=== PATIENT | female | born 1945 | race American Indian/Alaskan Native ===

== ENCOUNTER 2016-06-29 21:28 | Emergency (ER) | payer SELFPAY ==
[2016-06-29 22:45] VITALS: BP 147/94
== END 2016-06-30 03:52 | disposition left against medical advice (07) ==
LOC: ED 21:28
DX: R05 Cough (principal); I10 Essential (primary) hypertension; Z53.21 Procedure and treatment not carried out due to patient leaving prior to being seen by health care provider
CPT/HCPCS: 93005; 93010

== ENCOUNTER 2016-07-26 18:05 | Emergency (ER) | payer MEDICARE ==
--- NOTE | 2016-07-26 19:29 | Emergency Department Report ---
Stated Complaint: BUMP ON LEG/VEIN Time Seen by Provider: 07/26/16 19:25 - HPI History of Present Illness: Patient here reports that she has a lump to her right inner thigh that she noticed today. She denies any trauma to side. Complaining of skin rash to upper extremity and thinks it's from her Zithromax. Denies any respiratory symptoms. - ROS Review of Systems: All systems are negative unless stated in HPI above. - Exam Physical Exam: General: Well-nourished well-developed female in no acute distress. Skin: Noted course size mobile nodule to right inner distal thigh area. Nontender to palpate without any erythema, or fluctuance. Maculopapular rash to bilateral upper extremity. Sand paperlike feeling. MSE screening note: Focused history and physical exam performed. Due to findings the following was ordered: ED Medical Decision Making - Medical Decision Making MDM: Patient seen by provider in triage area. She has been examined and appropriate to fast-track area. ED Disposition for MSE Condition: Stable
--- NOTE | 2016-07-26 21:21 | Emergency Department Report ---
HPI - General Chief Complaint: Skin/Abscess/Foreign Body Time Seen by Provider: 07/26/16 19:25 - HPI HPI: 71 year old female presents today complaining of a lump to her right inner thigh that she noticed today. She denies injury or trauma. Denies history of similar symptoms. Denies any pain or pruritus at the site. Patient also complaining of skin rash to both upper extremities x5 days. She thinks it may be associated with azithromycin since she had taken that for 5 days starting July 09. Denies fever, chills, nausea, vomiting, chest pain, shortness of breath, abdominal pain. Denies difficulty in breathing or swallowing. ED Past Medical Hx - Past Medical History Previous Medical History?: Yes Hx Hypertension: Yes Additional medical history: a fib - Surgical History Additional Surgical History: R knee - Social History Smoking Status: Unknown if ever smoked - Medications Home Medications: Home Medications Medication Instructions Recorded Confirmed Last Taken Type Azithromycin [Zithromax Z-XIANG] 250 mg PO DAILY 07/26/16 07/26/16 Unknown History Lisinopril [Zestril TAB] 40 mg PO QDAY 07/26/16 07/26/16 Unknown History Metoprolol Succinate 25 mg PO DAILY 07/26/16 07/26/16 Unknown History Warfarin [Coumadin] 5 mg PO QDAY 07/26/16 07/26/16 Unknown History amLODIPine [Norvasc] 5 mg PO DAILY 07/26/16 07/26/16 Unknown History predniSONE [Deltasone] 20 mg PO QDAY 07/26/16 07/26/16 Unknown History ED Review of Systems ROS: Stated complaint: BUMP ON LEG/VEIN Other details as noted in HPI Constitutional: denies: chills, fever, malaise Eyes: denies: eye pain ENT: denies: ear pain, throat pain, congestion Respiratory: denies: cough, shortness of breath, wheezing Cardiovascular: denies: chest pain, palpitations Endocrine: no symptoms reported Gastrointestinal: denies: abdominal pain, nausea, vomiting Skin: rash. denies: pruritus Neurological: denies: headache, weakness, numbness, paresthesias Physical Exam - Physical Exam Vital Signs: Vital Signs 07/26/16 19:29 Temperature 98.0 F Pulse Rate 83 Respiratory 18 Rate Blood Pressure 138/82 O2 Sat by Pulse 96 Oximetry Physical Exam: GENERAL: The patient is well-developed and well-nourished. Patient is in NAD. SKIN: 1 cm in diameter mobile nodule to right inner distal thigh area. Nontender to palpation without any erythema or fluctuance. Maculopapular rash noted to bilateral upper extremity. Sand paperlike feeling. HEAD: Normocephalic. Atraumatic. CHEST/LUNGS: Clear to auscultation throughout. HEART/CARDIOVASCULAR: Regular rate and rhythm. No murmurs, rubs or gallops. ABDOMEN: Abdomen is soft, nontender. Bowel sounds normoactive. No guarding or rebound tenderness. EXTREMITIES: Peripheral pulses intact. Capillary refill less than 2 seconds. NEURO: Alert and oriented x 3. Normal gait. ED Course Vital Signs 07/26/16 19:29 Temperature 98.0 F Pulse Rate 83 Respiratory 18 Rate Blood Pressure 138/82 O2 Sat by Pulse 96 Oximetry ED Medical Decision Making - Lab Data Vital Signs 07/26/16 19:29 Temperature 98.0 F Pulse Rate 83 Respiratory 18 Rate Blood Pressure 138/82 O2 Sat by Pulse 96 Oximetry - Medical Decision Making 71-year-old female presents today with a a lump of her right thigh and eczema like rash to both upper extremities. Patient is recommended to use FOR or Cetaphil to both upper extremities. Patient is in no acute distress at this time. She will be discharged home and is encouraged to follow up with a primary care provider. She is encouraged to return to the emergency room for any worsening symptoms. Critical care attestation.: If time is entered above; I have spent that time in minutes in the direct care of this critically ill patient, excluding procedure time. ED Disposition Clinical Impression: Rash Lump of thigh Qualifiers: Laterality: right Qualified Code(s): R22.41 - Localized swelling, mass and lump , right lower limb Disposition: DISCHARGED TO HOME OR SELFCARE Is pt being admited?: No Does the pt Need Aspirin: No Condition: Stable Instructions: Eczema (ED), Lymphadenopathy (ED) Additional Instructions: Follow-up with primary care provider. Return to the emergency department if symptoms worsen. Referrals: SAPNA MATIAS MD [Primary Care Provider] - 3-5 Days AUTUMN QUISPE MD [Staff Physician] - 3-5 Days Forms: Work/School Release Form(ED), Accompanied Note Time of Disposition: 21:23
[2016-07-26 21:58] VITALS: BP 157/92
== END 2016-07-26 22:10 | disposition home or self-care (01) ==
LOC: ED 18:05
DX: R22.41 Localized swelling, mass and lump, right lower limb (principal); R21 Rash and other nonspecific skin eruption; I10 Essential (primary) hypertension
CPT/HCPCS: 99281

== ENCOUNTER 2016-11-22 11:36 | Emergency (ER) | payer MEDICARE ==
--- NOTE | 2016-11-22 13:07 | Emergency Department Report ---
ED General Adult HPI - General Chief complaint: Skin Rash Stated complaint: BILAT LEG RED SPOTS/TAKES BLOOD THINNERS Time Seen by Provider: 11/22/16 12:46 Source: patient Mode of arrival: Ambulatory Limitations: No Limitations - History of Present Illness Initial comments: 71F PMH Afib, Dmt2, HLD p/w c/o several days of red rash to b/l lower extremities. Pt is AAOx3, NAD, no fevers or chills no abdominal pain no dysuria no hematuria denies any rectal bleeding. Patient accompanied by her . States she notices rash a few days ago dark red spots on her legs. Patient denies any pain associated with rash Onset/Timin -: days(s) Location: lower extremity (petechial reddish rash bilateral anterior benitez regions pretibial regions) Radiation: extremity - Related Data Home Medications Medication Instructions Recorded Confirmed Last Taken Azithromycin [Zithromax Z-XIANG] 250 mg PO DAILY 07/26/16 07/26/16 Unknown Lisinopril [Zestril TAB] 40 mg PO QDAY 07/26/16 07/26/16 Unknown Metoprolol Succinate 25 mg PO DAILY 07/26/16 07/26/16 Unknown Warfarin [Coumadin] 5 mg PO QDAY 07/26/16 07/26/16 Unknown amLODIPine [Norvasc] 5 mg PO DAILY 07/26/16 07/26/16 Unknown predniSONE [Deltasone] 20 mg PO QDAY 07/26/16 07/26/16 Unknown Allergies Allergy/AdvReac Type Severity Reaction Status Date / Time No Known Allergies Allergy Unverified 06/29/16 22:43 ED Review of Systems ROS: Stated complaint: BILAT LEG RED SPOTS/TAKES BLOOD THINNERS Other details as noted in HPI Constitutional: denies: chills, fever Eyes: denies: eye pain, eye discharge, vision change ENT: denies: ear pain, throat pain Respiratory: denies: cough, shortness of breath, wheezing Cardiovascular: denies: chest pain, palpitations Endocrine: no symptoms reported Gastrointestinal: denies: abdominal pain, nausea, diarrhea Genitourinary: denies: urgency, dysuria, discharge Musculoskeletal: denies: back pain, joint swelling, arthralgia Skin: as per HPI, rash (small red petechial lesions on both legs from the knee down). denies: lesions Neurological: denies: headache, weakness, paresthesias Psychiatric: denies: anxiety, depression Hematological/Lymphatic: denies: easy bleeding, easy bruising ED Past Medical Hx - Past Medical History Previous Medical History?: Yes Hx Hypertension: Yes Additional medical history: a fib - Surgical History Past Surgical History?: Yes Additional Surgical History: R knee - Social History Smoking Status: Never Smoker Substance Use Type: None - Medications Home Medications: Home Medications Medication Instructions Recorded Confirmed Last Taken Type Azithromycin [Zithromax Z-XIANG] 250 mg PO DAILY 07/26/16 07/26/16 Unknown History Lisinopril [Zestril TAB] 40 mg PO QDAY 07/26/16 07/26/16 Unknown History Metoprolol Succinate 25 mg PO DAILY 07/26/16 07/26/16 Unknown History Warfarin [Coumadin] 5 mg PO QDAY 07/26/16 07/26/16 Unknown History amLODIPine [Norvasc] 5 mg PO DAILY 07/26/16 07/26/16 Unknown History predniSONE [Deltasone] 20 mg PO QDAY 07/26/16 07/26/16 Unknown History ED Physical Exam - General Limitations: No Limitations General appearance: alert, in no apparent distress - Head Head exam: Present: atraumatic, normocephalic - Eye Eye exam: Present: normal appearance, PERRL, EOMI - ENT ENT exam: Present: normal exam, normal orophraynx (no petechial lesions inside of the oral cavity vehicle mucosa on the tongue or underneath the tongue), mucous membranes moist - Neck Neck exam: Present: normal inspection, full ROM - Respiratory Respiratory exam: Present: normal lung sounds bilaterally. Absent: respiratory distress - Cardiovascular Cardiovascular Exam: Present: regular rate, normal rhythm. Absent: systolic murmur, diastolic murmur, rubs, gallop - GI/Abdominal GI/Abdominal exam: Present: soft, normal bowel sounds - Extremities Exam Extremities exam: Present: normal inspection - Back Exam Back exam: Present: normal inspection - Neurological Exam Neurological exam: Present: alert, oriented X3, CN II-XII intact, normal gait - Psychiatric Psychiatric exam: Present: normal affect, normal mood - Skin Skin exam: Present: warm, dry, intact, normal color, petechiae (petechia bilateral lower extremity). Absent: rash ED Course Vital Signs 11/22/16 11:43 Temperature 98.5 F Pulse Rate 112 H Respiratory 16 Rate Blood Pressure 134/79 O2 Sat by Pulse 99 Oximetry ED Medical Decision Making - Lab Data Result diagrams: 11/22/16 13:12 11/22/16 13:12 - Medical Decision Making A/P: Lower extremity petechia, possible vasculitis 1-labs within normal limits, platelets within normal limits, INR 2.96, hepatic panel normal, no electrolyte abnormalities, no lower extremity DVT 2-case discussed with Dr. Joshi who also examined the patient 3-I provided patient with her test results and advised her to follow up with her primary care doctor and to seek out a rheumatology consultation or referral to her primary care doctor. Patient stated she understood my instructions 4- I advised patient to return to the ED for any fevers chills cough hemoptysis or hematuria or rectal bleeding. Patient stated she understood my instructions. Patient was accompanied by who also heard this conversation. Critical care attestation.: If time is entered above; I have spent that time in minutes in the direct care of this critically ill patient, excluding procedure time. ED Disposition Clinical Impression: Petechial rash Disposition: DC-01 TO HOME OR SELFCARE Is pt being admited?: No Does the pt Need Aspirin: No Condition: Stable Instructions: Acute Rash (ED) Additional Instructions: [email or web address]=search_result&search=vasculitis%20adult&selectedTitle=1~150#[email or web address] Referrals: VONNIE LEDESMA MD [Staff Physician] - 3-5 Days ENRICO AVILA MD [Staff Physician] - 3-5 Days Forms: Accompanied Note Time of Disposition: 15:33
[2016-11-22 13:33] LABS: Basophils % (Auto) 0.2 % (0.0-1.8); Eosinophils % (Auto) 0.3 % (0.0-4.3); Hematocrit 39.6 % (30.3-42.9); Hemoglobin 13.3 gm/dl (10.1-14.3); Mean Corpuscular HGB Conc 34 % (30-34); Mean Corpuscular Hemoglobin 31 pg (28-32); Mean Corpuscular Volume 92 fl (79-97); Platelet Count 231 K/mm3 (140-440); Red Blood Count 4.31 M/mm3 (3.65-5.03); Red Cell Distribution Width 13.7 % (13.2-15.2); White Blood Count 5.9 K/mm3 (4.5-11.0)
[2016-11-22 13:43] LABS: Bilirubin,Urine NEG (Negative); Blood,Urine SM (Negative); Ketones,Urine NEG (Negative); Leukocyte Esterase,Urine NEG (Negative); Nitrite,Urine NEG (Negative); Protein,Urine <15 mg/dL mg/dL (Negative); Urobilinogen,Urine < 2.0 mg/dL (<2.0); WBC,Urine < 1.0 /HPF (0.0-6.0)
[2016-11-22 13:45] LABS: INR 2.96 (0.87-1.13); Partial Thromboplastin Time 41.7 Sec. (24.2-36.6)
[2016-11-22 13:59] LABS: Alanine Aminotransferase 11 units/L (7-56); Albumin 4.7 g/dL (3.9-5); Albumin/Globulin Ratio 1.5 %; Alkaline Phosphatase 80 units/L (35-129); Anion Gap 20 mmol/L; BUN/Creatinine Ratio 21.66; Blood Urea Nitrogen 13 mg/dL (7-17); Calcium 9.6 mg/dL (8.4-10.2); Carbon Dioxide 26 mmol/L (22-30); Chloride 96.3 mmol/L (98-107); Glucose 88 mg/dL (65-100); Potassium 5.1 mmol/L (3.6-5.0); Sodium 137 mmol/L (137-145); Total Protein 7.9 g/dL (6.3-8.2)
[2016-11-22 14:08] LABS: Bilirubin,Direct < 0.2 mg/dL (0-0.2)
[2016-11-22 16:59] VITALS: BP 129/83
== END 2016-11-22 15:35 | disposition home or self-care (01) ==
LOC: ED 11:36
DX: R23.3 Spontaneous ecchymoses (principal); I10 Essential (primary) hypertension; I48.91 Unspecified atrial fibrillation; Z79.01 Long term (current) use of anticoagulants
CPT/HCPCS: 36415; 80048; 80074; 81001; 85025; 85610; 85730; 93970

== ENCOUNTER 2017-11-11 02:45 | Emergency (ER) | payer MEDICARE ==
[2017-11-11] MEDS ORDERED: ASPIRIN PO ONE (03:02)
[2017-11-11 03:34] LABS: Basophils % (Auto) 0.5 % (0.0-1.8); Eosinophils % (Auto) 0.7 % (0.0-4.3); Hematocrit 38.7 % (30.3-42.9); Hemoglobin 13.1 gm/dl (10.1-14.3); Lymphocytes # (Auto) 1.1 K/mm3 (1.2-5.4); Lymphocytes % (Auto) 25.6 % (13.4-35.0); Mean Corpuscular HGB Conc 34 % (30-34); Mean Corpuscular Hemoglobin 32 pg (28-32); Mean Corpuscular Volume 94 fl (79-97); Monocytes # (Auto) 0.3 K/mm3 (0.0-0.8); Monocytes % (Auto) 6.3 % (0.0-7.3); Platelet Count 233 K/mm3 (140-440); Red Blood Count 4.13 M/mm3 (3.65-5.03); Red Cell Distribution Width 13.8 % (13.2-15.2)
[2017-11-11 03:58] LABS: BUN/Creatinine Ratio 16; Blood Urea Nitrogen 11 mg/dL (7-17); Calcium 9.8 mg/dL (8.4-10.2); Hemolysis Index 0
[2017-11-11 05:16] VITALS: BP 131/77
--- NOTE | 2017-11-11 05:26 | Emergency Department Report ---
ED Chest Pain HPI - General Chief Complaint: Chest Pain Stated Complaint: CHEST PAIN Time Seen by Provider: 11/11/17 04:23 Source: patient Mode of arrival: Ambulatory Limitations: No Limitations - History of Present Illness Initial Comments: Yesterday afternoon, pt was under a lot of stress. She started having palpitations. It made her concerned that she was back in a.fib. So, she came to the ER for evaluation. Currently on eliquis/metoprolol. No CP/SOB. At time of presentation to the ER, the patient feels much improved. Pt normally takes her metoprolol Er at 5 am daily. - Related Data Home Medications Medication Instructions Recorded Confirmed Last Taken Lisinopril [Zestril TAB] 40 mg PO QDAY 07/26/16 11/11/17 Unknown Metoprolol Succinate 25 mg PO DAILY 07/26/16 11/11/17 Unknown amLODIPine [Norvasc] 5 mg PO DAILY 07/26/16 11/11/17 Unknown Apixaban [Eliquis] 2.5 mg PO BID 11/11/17 11/11/17 Unknown Allergies Allergy/AdvReac Type Severity Reaction Status Date / Time No Known Allergies Allergy Unverified 06/29/16 22:43 Heart Score - HEART Score History: Slightly suspicious EKG: Normal Age: > 65 Risk factors: 1-2 risk factors Troponin: < normal limit HEART Score: 3 ED Review of Systems ROS: Stated complaint: CHEST PAIN Other details as noted in HPI Comment: All other systems reviewed and negative Cardiovascular: palpitations Psychiatric: anxiety ED Past Medical Hx - Past Medical History Previous Medical History?: Yes Hx Hypertension: Yes Additional medical history: a fib - Surgical History Past Surgical History?: Yes Additional Surgical History: R knee - Social History Smoking Status: Former Smoker Substance Use Type: None - Medications Home Medications: Home Medications Medication Instructions Recorded Confirmed Last Taken Type Lisinopril [Zestril TAB] 40 mg PO QDAY 07/26/16 11/11/17 Unknown History Metoprolol Succinate 25 mg PO DAILY 07/26/16 11/11/17 Unknown History amLODIPine [Norvasc] 5 mg PO DAILY 07/26/16 11/11/17 Unknown History Apixaban [Eliquis] 2.5 mg PO BID 11/11/17 11/11/17 Unknown History ED Physical Exam - General Limitations: No Limitations General appearance: alert, in no apparent distress - Head Head exam: Present: atraumatic, normocephalic - Eye Eye exam: Present: normal appearance - ENT ENT exam: Present: mucous membranes moist - Neck Neck exam: Present: normal inspection - Respiratory Respiratory exam: Present: normal lung sounds bilaterally. Absent: respiratory distress - Cardiovascular Cardiovascular Exam: Present: regular rate, normal rhythm, tachycardia, normal heart sounds. Absent: systolic murmur, diastolic murmur, rubs, gallop - GI/Abdominal GI/Abdominal exam: Present: soft, normal bowel sounds. Absent: distended, tenderness, guarding, rebound - Extremities Exam Extremities exam: Present: normal inspection - Back Exam Back exam: Present: normal inspection - Neurological Exam Neurological exam: Present: alert, oriented X3 - Psychiatric Psychiatric exam: Present: normal affect, normal mood - Skin Skin exam: Present: warm, dry, intact, normal color. Absent: rash ED Course Vital Signs 11/11/17 11/11/17 11/11/17 02:55 03:54 04:00 Temperature 98.1 F 98.2 F Pulse Rate 114 H 91 H 93 H Respiratory 16 21 13 Rate Blood Pressure 161/90 139/82 Blood Pressure 140/79 [Left] O2 Sat by Pulse 97 97 98 Oximetry 11/11/17 05:01 Temperature Pulse Rate 81 Respiratory 12 Rate Blood Pressure 131/77 Blood Pressure [Left] O2 Sat by Pulse 96 Oximetry ED Medical Decision Making - Lab Data Result diagrams: 11/11/17 03:06 11/11/17 03:06 - EKG Data -: EKG Interpreted by Me EKG shows normal: sinus rhythm, axis, intervals, QRS complexes, ST-T waves Rate: tachycardia - EKG Data Interpretation: no acute changes, other (occcasional PVCs) - Medical Decision Making 72 yo female with pmhx a.fib, htn that p/w palpitations. VS significant for heart rate of 114. This improved without intervention. EKG shows sinus tach with occasional PVCs. Labs are unremarkable. I believe patient's tachycardia to be related to her not having her metoprolol at this time. She normally takes it at 0500 and she arrived to the ER at 0300 with intermittent tachycardia. Low suspicion for ACS, PE given no CP/SOB. Pt feels reassured that she isn't in a. fib. She will follow up with her pcp for further evaluation/management of her palpitations. - Differential Diagnosis acs, pe, arrhythmia, electrolyte abnormality, anxiety Critical care attestation.: If time is entered above; I have spent that time in minutes in the direct care of this critically ill patient, excluding procedure time. ED Disposition Clinical Impression: Heart palpitations Disposition: DC-01 TO HOME OR SELFCARE Is pt being admited?: No Does the pt Need Aspirin: No Condition: Stable Instructions: Palpitations (ED) Additional Instructions: Please follow up with your primary care physician about further evaluation/ management of your palpitations if these episodes continue. Referrals: PRIMARY CARE, [Primary Care Provider] - 3-5 Days
== END 2017-11-11 05:46 | disposition home or self-care (01) ==
LOC: ED 02:45
DX: R00.2 Palpitations (principal); I10 Essential (primary) hypertension; I48.91 Unspecified atrial fibrillation; Z87.891 Personal history of nicotine dependence
CPT/HCPCS: 36415; 80048; 83735; 84484; 85025; 93005; 93010; 99284

== ENCOUNTER 2018-08-30 15:06 | Emergency (ER) | payer MEDICARE ==
--- NOTE | 2018-08-30 15:27 | Emergency Department Report ---
Blank Doc - Documentation Documentation: 73 y o female presents to Ed stating not feeling well Hx of Atrial fib with meds denies chest pain states not feeling good at all labs ordered main side eval
--- NOTE | 2018-08-30 16:31 | Emergency Department Report ---
ED General Adult HPI - General Chief complaint: Weakness Stated complaint: AFIB Time Seen by Provider: 08/30/18 15:22 Source: patient, RN notes reviewed, old records reviewed Mode of arrival: Ambulatory Limitations: No Limitations - History of Present Illness Initial comments: Primary care Dr.: Dr. Harris Cardiology: Dr. Caldwell Past medical history: Atrial fibrillation, presumed per minute, on systemic anticoagulation, eliquis, hypertension This is a pleasant 73-year-old female. The patient presents to the emergency room with a complaint of feeling weak, nervous and shaky. She is not having pain. Her symptoms began this morning. They were constant. They did not radiate anywhere. He did not have exacerbating or relieving factors. They're now resolved. The patient does not have headache, neck pain, chest pain, abdominal pain, shortness of breath, fever, sore throat, urinary symptoms, she endorses compliance with her medications, indicates no recent medication changes, and indicates no caffeine consumption for at least 24 hours. -: Gradual Severity scale (0 -10): 0 Consistency: now resolved Improves with: none Worsens with: none Associated Symptoms: denies other symptoms - Related Data Home Medications Medication Instructions Recorded Confirmed Last Taken Lisinopril [Zestril TAB] 40 mg PO QDAY 07/26/16 11/11/17 Unknown Metoprolol Succinate 25 mg PO DAILY 07/26/16 11/11/17 Unknown amLODIPine [Norvasc] 5 mg PO DAILY 07/26/16 11/11/17 Unknown Apixaban [Eliquis] 2.5 mg PO BID 11/11/17 11/11/17 Unknown Allergies Allergy/AdvReac Type Severity Reaction Status Date / Time No Known Allergies Allergy Verified 08/30/18 15:07 ED Review of Systems ROS: Stated complaint: AFIB Other details as noted in HPI Comment: All other systems reviewed and negative Constitutional: malaise ED Past Medical Hx - Past Medical History Hx Hypertension: Yes Additional medical history: a fib - Surgical History Additional Surgical History: R knee - Social History Smoking Status: Never Smoker Substance Use Type: None - Medications Home Medications: Home Medications Medication Instructions Recorded Confirmed Last Taken Type Lisinopril [Zestril TAB] 40 mg PO QDAY 07/26/16 11/11/17 Unknown History Metoprolol Succinate 25 mg PO DAILY 07/26/16 11/11/17 Unknown History amLODIPine [Norvasc] 5 mg PO DAILY 07/26/16 11/11/17 Unknown History Apixaban [Eliquis] 2.5 mg PO BID 11/11/17 11/11/17 Unknown History ED Physical Exam - General Limitations: No Limitations General appearance: alert, in no apparent distress - Head Head exam: Present: atraumatic, normocephalic - Eye Eye exam: Present: normal appearance, EOMI. Absent: nystagmus - ENT ENT exam: Present: normal exam, normal orophraynx, mucous membranes moist, normal external ear exam - Neck Neck exam: Present: normal inspection, full ROM. Absent: tenderness, meningismu s - Respiratory Respiratory exam: Present: normal lung sounds bilaterally. Absent: respiratory distress - Cardiovascular Cardiovascular Exam: Present: tachycardia, irregular rhythm, normal heart sounds, other (resting heart rate anywhere from mid 80s to 104 bpm). Absent: systolic murmur, diastolic murmur, rubs, gallop - GI/Abdominal GI/Abdominal exam: Present: soft. Absent: distended, tenderness, guarding, rebound, pulsatile mass - Extremities Exam Extremities exam: Present: normal inspection, full ROM, other (2+ pulses noted in the bilateral upper, lower extremities. Compartments soft. No long bony tenderness. The pelvis is stable.). Absent: pedal edema, joint swelling, calf tenderness - Back Exam Back exam: Present: normal inspection, full ROM. Absent: tenderness, CVA tenderness (R), CVA tenderness (L), paraspinal tenderness, vertebral tenderness - Neurological Exam Neurological exam: Present: alert, normal gait, other (Extraocular movements intact. Tongue midline. No facial droop. Facial sensation intact to light touch in the V1, V2, V3 distribution bilaterally. 5 and 5 strength in 4 extremities.. Sensation is intact to light touch in 4 extremities.). Absent: motor sensory deficit - Psychiatric Psychiatric exam: Present: normal affect, normal mood - Skin Skin exam: Present: warm, dry, intact, normal color. Absent: rash ED Course Vital Signs 08/30/18 08/30/18 15:15 15:25 Temperature 98.5 F Pulse Rate 128 H 104 H Respiratory 18 Rate Blood Pressure 134/90 [Right] O2 Sat by Pulse 97 Oximetry - Reevaluation(s) Reevaluation #1: 08/30/18 18:08 Patient reassessed. The patient is resting comfortably, and she is in no acute distress. Her objective laboratory studies do not appear to demonstrate an emergent condition at this time. The patient was given a copy of her laboratory studies and instructed to follow- up with her primary care doctor for incidental thyroid abnormalities. She reports that she has a follow-up with her production lead in 2 weeks. Her repeat EKG demonstrates a rhythm of sinus, with a rate of 87 bpm. Patient resting comfortably, and in no acute distress. The patient's A. fib with RVR has resolved, and she is medically suitable follow-up. ED Medical Decision Making - Lab Data Result diagrams: 08/30/18 16:07 08/30/18 16:07 Vital Signs 08/30/18 08/30/18 15:15 15:25 Temperature 98.5 F Pulse Rate 128 H 104 H Respiratory 18 Rate Blood Pressure 134/90 [Right] O2 Sat by Pulse 97 Oximetry Vital Signs 08/30/18 08/30/18 15:15 15:25 Temperature 98.5 F Pulse Rate 128 H 104 H Respiratory 18 Rate Blood Pressure 134/90 [Right] O2 Sat by Pulse 97 Oximetry Lab Results 08/30/18 08/30/18 08/30/18 Range/Units 16:07 16:07 16:07 WBC 2.7 L (4.5-11.0) K/mm3 RBC 4.14 (3.65-5.03) M/mm3 Hgb 13.2 (10.1-14.3) gm/dl Hct 39.7 (30.3-42.9) % MCV 96 (79-97) fl MCH 32 (28-32) pg MCHC 33 (30-34) % RDW 13.9 (13.2-15.2) % Plt Count 199 (140-440) K/mm3 Lymph % (Auto) 37.1 H (13.4-35.0) % Woodruff % (Auto) 12.0 H (0.0-7.3) % Eos % (Auto) 0.4 (0.0-4.3) % Baso % (Auto) 0.3 (0.0-1.8) % Lymph # 1.0 L (1.2-5.4) K/mm3 Woodruff # 0.3 (0.0-0.8) K/mm3 Eos # 0.0 (0.0-0.4) K/mm3 Baso # 0.0 (0.0-0.1) K/mm3 Seg Neutrophils % 50.2 (40.0-70.0) % Seg Neutrophils # 1.4 L (1.8-7.7) K/mm3 PT 17.8 H (12.2-14.9) Sec. INR 1.37 H (0.87-1.13) Sodium 134 L (137-145) mmol/L Potassium 4.1 (3.6-5.0) mmol/L Chloride 94.9 L (98-107) mmol/L Carbon Dioxide 28 (22-30) mmol/L Anion Gap 15 mmol/L BUN 13 (7-17) mg/dL Creatinine 0.8 (0.7-1.2) mg/dL Estimated GFR > 60 ml/min BUN/Creatinine Ratio 16 % Glucose 112 H (65-100) mg/dL Calcium 9.2 (8.4-10.2) mg/dL - EKG Data -: EKG Interpreted by Me Rate: tachycardia - EKG Data 08/30/18 17:06 EKG #1 shows atrial fibrillation, rapid ventricular response, 128 bpm, borderline left axis deviation, QTC prolonged, and complete right bundle branch block, poor R wave progression, not having chest pain, abnormal EKG, not consistent with ST elevation myocardial infarction. - Radiology Data Radiology results: image reviewed interpreted by me: X-ray of the chest shows hyperinflated lungs, with no acute disease or pathology - Medical Decision Making Differential diagnosis, including but not limited to: Pneumonia, urinary tract infection, A. fib with RVR, permanent A. fib, electrolytes derangement Assessment and plan: 73-year-old female in A. fib, resolved RVR, rate in the high 90s, afebrile with reassuring vital signs, in no acute distress at this time. Does not endorse pulmonary symptoms or urinary symptoms. Clinically well-appearing. Walking with a steady gait. Most likely experiencing natural history of her underlying presumed permanent A. fib. Patient may continue her current medications, and she can follow up with her outpatient production lead. Counseled to avoid stimulants, as well as caffeinated beverages. Critical care attestation.: If time is entered above; I have spent that time in minutes in the direct care of this critically ill patient, excluding procedure time. ED Disposition Clinical Impression: Atrial fibrillation Qualifiers: Atrial fibrillation type: unspecified Qualified Code(s): I48.91 - Unspecified atrial fibrillation Disposition: TO HOME OR SELFCARE Is pt being admited?: No Does the pt Need Aspirin: No Additional Instructions: Continue outpatient medications. Avoid consumption of stimulants, caffeinated beverages. Follow up with her primary care doctor or production lead within the next 7-10 days. Return to the emergency room right away with new, worsening or different symptoms, or symptoms not present on the initial ER evaluation. Please have your primary care doctor contact the medical records department to obtain laboratory tests to follow-up nonemergent incidental abnormal findings. Referrals: SAPNA CALDWELL MD [Staff Physician] - 7-10 days
[2018-08-30 16:43] LABS: Basophils % (Auto) 0.3 % (0.0-1.8); Eosinophils % (Auto) 0.4 % (0.0-4.3); Hematocrit 39.7 % (30.3-42.9); Hemoglobin 13.2 gm/dl (10.1-14.3); Lymphocytes % (Auto) 37.1 % (13.4-35.0); Mean Corpuscular HGB Conc 33 % (30-34); Mean Corpuscular Volume 96 fl (79-97); Monocytes # (Auto) 0.3 K/mm3 (0.0-0.8); Platelet Count 199 K/mm3 (140-440); Red Blood Count 4.14 M/mm3 (3.65-5.03); Red Cell Distribution Width 13.9 % (13.2-15.2)
[2018-08-30 16:53] LABS: INR 1.37 (0.87-1.13)
[2018-08-30 17:01] LABS: BUN/Creatinine Ratio 16; Blood Urea Nitrogen 13 mg/dL (7-17); Calcium 9.2 mg/dL (8.4-10.2); Hemolysis Index 9
--- NOTE | 2018-08-30 17:55 | XRay Report ---
PROCEDURE: XR CHEST ROUTINE 2V TECHNIQUE: PA and lateral chest radiographs were obtained. HISTORY: Weakness COMPARISONS: None. FINDINGS: Heart: Normal. Mediastinum/Vessels: Normal. Lungs/Pleural space: Lungs demonstrate hyperexpansion. No acute airspace disease. No effusion.. Bony thorax: No acute osseous abnormality. IMPRESSION: Hyperexpansion which can indicate COPD. No acute pulmonary disease. This document is electronically signed by Sonny Almazan MD., Aug 30 2018 05:54:00 PM ET
[2018-08-30 18:04] LABS: Bilirubin,Urine NEG (Negative); Blood,Urine NEG (Negative); Color,Urine Yellow (Yellow); Hyaline Casts,Urine 1 /LPF; Mucus,Urine FEW /HPF; Protein,Urine <15 mg/dL mg/dL (Negative); Urobilinogen,Urine < 2.0 mg/dL (<2.0); WBC,Urine < 1.0 /HPF (0.0-6.0)
[2018-08-30 18:29] VITALS: BP 130/74
== END 2018-08-30 18:39 | disposition home or self-care (01) ==
LOC: ED 15:06
DX: I48.91 Unspecified atrial fibrillation (principal); I10 Essential (primary) hypertension; Z79.899 Other long term (current) drug therapy
CPT/HCPCS: 36415; 71046; 80048; 81001; 82550; 83735; 84443; 85025; 85610; 93005; 93010